=== PATIENT | male | born 1955 | race Caucasian/White ===

== ENCOUNTER → 2017-03-31 | Outpatient (CLI) | payer BC ==
[~2017-03-31] MED LIST: LPRUNK PO; LSNUNK PO
[2017-03-31 12:56] LABS: THYROID STIMULATING HORMONE 1.14 uIu/ml (0.300-4.500)
== END | disposition home or self-care (01) ==
LOC: C.LAB1850 09:06
PROVIDERS: ATTEND Internal Medicine Endocrinology, Diabetes & Metabolism
DX: E05.00 Thyrotoxicosis with diffuse goiter without thyrotoxic crisis or storm (principal); E89.0 Postprocedural hypothyroidism

== ENCOUNTER → 2017-07-05 | Outpatient (CLI) | payer BC ==
[2017-07-05 11:36] LABS: THYROID STIMULATING HORMONE 1.51 uIu/ml (0.300-4.500)
== END | disposition home or self-care (01) ==
LOC: C.LAB1850 09:08
PROVIDERS: ATTEND Internal Medicine Endocrinology, Diabetes & Metabolism
DX: E89.0 Postprocedural hypothyroidism (principal)